=== PATIENT | female | born 1960 | race Caucasian/White ===

== ENCOUNTER 2017-07-10 21:16 | Emergency (ER) | payer SELFPAY ==
[~2017-07-10] VITALS: Ht 162.6 cm; Wt 54.4 kg
--- NOTE | 2017-07-10 21:35 | Emergency Room Report ---
History of Present Illness General Chief Complaint: Sore Throat Source: Patient, EMS Present Illness HPI Is a 57-year-old female who was just discharged from [facility] for cellulitis to lower extremity. She was prescribed Bactrim and Keflex. She was sent to a rehabilitation facility but she left there because she didn't like it there. She is now complaining of sore throat. Onset since she left the hospital. No fever chills but no nausea no vomiting. Nothing made it better. Swollen made it worse. Allergies: Coded Allergies: No Known Allergies (Unverified , 07/10/17) Patient History Past Medical History: see triage record, old chart reviewed Past Surgical History: none Pertinent Family History: none Social History: Denies: smoking Now: No Immunizations: other Reviewed Nursing Documentation: PMH: Agreed, PSxH: Agreed Nursing Documentation-PMH Past Medical History: No Stated History Review of Systems Eye: Denies: eye pain, blurred vision ENT: Reports: throat pain, Denies: ear pain, nose congestion, throat swelling Respiratory: Denies: cough, shortness of breath Cardiovascular: Denies: chest pain, palpitations Gastrointestinal: Denies: abdominal pain, diarrhea, nausea, vomiting Musculoskeletal: Denies: back pain, joint pain Skin: Denies: rash Neurological: Denies: headache, numbness Endocrine: Denies: increased thirst, increased urine Hematologic/Lymphatic: Denies: easy bruising All Other Systems: negative except mentioned in HPI Physical Exam Vital Signs Date Time Temp Pulse Resp B/P (MAP) Pulse Ox O2 Delivery O2 Flow Rate FiO2 07/10/17 21:15 100 16 140/92 98 Room Air vitals normal Sp02 EP Interpretation: reviewed, normal General Appearance: well appearing, no apparent distress, alert Head: normocephalic, atraumatic Eyes: bilateral eye PERRL, bilateral eye EOMI ENT: hearing grossly normal, normal pharynx Neck: full range of motion, supple, no meningismus Respiratory: chest non-tender, lungs clear, normal breath sounds Cardiovascular #1: regular rate, rhythm, no murmur Gastrointestinal: normal bowel sounds, non tender, no mass, no organomegaly, no bruit, non-distended Musculoskeletal: back normal, gait/station normal, normal range of motion, other - Chronic skin changes of Lower extremities. No edema. She has a ulcer to the right lower leg. No infection. Neurologic: alert, oriented x3 Psychiatric: mood/affect normal Skin: warm/dry Medical Decision Making Diagnostic Impression: Primary Impression: Pharyngitis, acute Qualified Codes: J02.8 - Acute pharyngitis due to other specified organisms ER Course Patient with a pharyngitis. Most likely while in nature. No exudates. She started on antibiotics. No trismus. No evidence of peritonsillar abscess, retropharyngeal abscess or Chintan angina. No active infection. We'll discharge home. Last Vital Signs Date Time Temp Pulse Resp B/P (MAP) Pulse Ox O2 Delivery O2 Flow Rate FiO2 07/10/17 21:15 100 16 140/92 98 Room Air Status: unchanged Disposition: HOME, SELF-CARE Condition: Stable Patient Instructions: Sore Throat Additional Instructions: Take your antibiotics. Followup with your doctor as scheduled by [facility]. Return if symptom worsen. ROSY MARROQUIN M.D. Jul 10, 2017 21:35
[2017-07-10 21:41] VITALS: BP 140/92
[2017-07-10 21:42] VITALS: BP 0/0
== END 2017-07-10 21:40 | disposition home or self-care (01) ==
LOC: EDBD 21:16 → EMR 21:25
DX: J02.9 Acute pharyngitis, unspecified (principal)
CPT/HCPCS: 99282

== ENCOUNTER 2020-02-06 07:20 | Emergency (ER) | payer OTHER ==
[~2020-02-06] VITALS: Ht 157.5 cm; Wt 57.2 kg
[2020-02-06] MEDS ORDERED: Morphine Sulfate 4mg/ml Inj (IV USE ONLY) IVP ONE (07:30)
[2020-02-06] MEDS ORDERED: Tetanus/Diptheria/Pertussis IM ONE (07:30)
--- NOTE | 2020-02-06 07:30 | NUR ---
ED Nurse Note: Patient brought in by ambulance from street/homeless due to BLE infection. per pt, it is chronic condition which she has had for 10 years. pt aao x4 and ambulatory but weak and slow. pt tends to be agitated and refuses care for no reason. redirectable but consistently refusing changing to gown, medications, iv insertion, being on classroom monitor. currently, iv HL made on Lt AC 22 G, pt changed to gown, medications given but Tdap shot. pt refused to be on classroom monitor. pt denied chest pain, SOB, cough, fever.
--- NOTE | 2020-02-06 07:36 | Emergency Room Report ---
History of Present Illness General Chief Complaint: Skin Rash/Abscess Source: Patient, Medical Record Present Illness HPI 58-year-old female with chronic venous stasis presents ambulance with complaint of rash to the bilateral lower extremity. She was hospitalized 2 months ago in [place] for similar complaint and was discharged with oral antibiotics. She has not taken any recent antibiotics and states that with continued walking , the pain gets worse. She admits to chills and pain with weightbearing. Otherwise denies fever, cough, hemoptysis, hematemesis, melena, hematochezia, nausea, vomiting, diarrhea or rapidly progressive rash. She denies history of chronic kidney disease or congestive heart failure. Denies IVDU or IM drug use. She states she is allergic to Bactrim and vancomycin. The patient's symptoms were gradual onset, severity was moderate, duration since 1 to 2 months. Quality: Aching Past medical history: Chronic venous stasis Past surgical history: Denies Smoking: Denies Alcohol use: Denies Drug use: Denies Review of systems: CONST: No fevers or chills, No night sweats PULMONARY: No productive cough, No shortness of breath CARDIAC: No chest pain, No palpitations GI: No vomiting, No diarrhea , No melena_or_BRBPR : No dysuria, No hematuria, No discharge NEURO: No new_focal_weakness_or_numbness, No confusion, No vision changes 14 point Review of Systems is otherwise negative except per HPI Physical Exam: GENERAL: Awake_alert_ nontoxic, no acute distress Spo2 98% on RA -normal EYES: Extraocular muscles are intact. Conjunctivae clear. Lids without swelling ENT: External nose and ear normal_in_appearance. Oropharynx clear. Head_ atraumatic, Moist_oral_mucosa NECK: No JVD. No meningismus. No thyromegaly. Supple. Trachea midline RESP: Normal respiratory effort. Symmetric rise. No stridor. Clear_to_ auscultation_No_rales_No_wheezes CARDIAC: Tachycardic. And regular rhytm. Left greater than right pedal edema. ABDOMEN: Soft. Nondistended. Nontender_No_rebound_or_guarding. MSK: Normal muscle tone, without rigidity. Extremities without asymmetric deformity or swelling. SKIN: Venous stasis and lymphedema to the bilateral lower extremity (left is worse than right). Erythematous and warm cellulitic rash to the left lower extremity. Circumferential. No palpable crepitus. Weeping serosanguineous material. Pain with palpation of rash. Erythematous warm and cellulitic rash to the right lower extremity. Not as severe as her left lower extremity. No palpable crepitus. Also wheezing. NEUROLOGIC: Alert, oriented x3. Motor_and_sensation_grossly_intact. No truncal ataxia. Gait_normal Psych: Normal mood and affect, normal judgment and insight - COORDINATION OF CARE Case was discussed with: Patient Any labs and imaging that were ordered were interpreted as part of the medical decision making: Medical Decision Making/Plan: Differential diagnosis includes sepsis / severe sepsis , cellulitis , osteo, UTI, pneumonia , viral syndrome, renal failure, congestive heart failure, arthritis, venous stasis , abscess, WITHOUT evidence for compartment syndrome, septic arthritis, arterial occlusion, deep venous thrombosis, among others. Vitals show tachycardia. Exam of BLE is concerning for acute on chronic cellulitis infection of venous stasis. Wounds are weeping. Sepsis bundle initiated on arrival. Blood cultures, lactate drawn. Lactate was elevated along with ESR and CRP, patient was refused 30 cc/kg IV fluids by bolus. Empiric antibiotics were started. COVID negative. No evidence of renal failure or CHF. Chest x-ray is unremarkable. Patient will be admitted to the hospital for further care and evaluation. Patient will be transferred to [facility] Will be transported by S. Accepting physician Dr Montemayor - CRITICAL CARE STATEMENT - Critical care performed 45 minutes Time is exclusive of separately billable procedures. Time includes: direct patient care, patient reassessment, coordination of patient care, review of patient's medical records, medical consultation, family consultation regarding treatment decisions and documentation of patient care. Organ systems at risk: Cardiac / Circulatory / DERM Allergies: Coded Allergies: SULFAMETHOXAZOLE (Verified Allergy, Intermediate, 02/06/20) TRIMETHOPRIM (Verified Allergy, Intermediate, 02/06/20) LEVETIRACETAM (Unverified Allergy, Unknown, 02/06/20) VANCOMYCIN (Unverified Allergy, Unknown, 02/06/20) COVID-19 Screening Contact w/high risk pt: No Experienced COVID-19 symptoms?: No COVID-19 Testing performed BEDSPREAD SEAMER: No Patient History Now: No Nursing Documentation-[facility] Past Medical History: No History, Except For Physical Exam Vital Signs Date Time Temp Pulse Resp B/P (MAP) Pulse Ox O2 Delivery O2 Flow Rate FiO2 02/06/20 07:21 98.1 105 16 103/63 (76) 98 Room Air Sp02 EP Interpretation: reviewed, normal Medical Decision Making Diagnostic Impression: Primary Impression: Cellulitis Additional Impressions: Venous stasis Hyponatremia Lymphedema EKG Diagnostic Results PA Scribe Konstantin 12-lead EKG (interpreted by ) Time: Indication: Rhythm analysis Tracing visualized and Interpreted by me. Rhythm: Sinus tachycardia Rate: 100 bpm QTc: 417 Morphology: No_significant_ST_elevations_or_depressions, No STEMI Impression: Sinus tachycardia without significant abnormalities. Rhythm Strip Diag. Results Rhythm Strip Time: 09:08 EP Interpretation: yes Rate: 80 Rhythm: NSR, no PVC's, no ectopy Chest X-Ray Diagnostic Results Chest X-Ray Diagnostic Results : [facility] Chest X-Ray: Views: [ 1 ] view(s) Indication: Sepsis hyperinflated lungs. Findings: Normal heart size. Mediastinum normal. No infiltrate. Impression: No pneumonia. No pleural effusion. The X-ray(s) were independently viewed and interpreted contemporaneously Electronically signed by Carole espino DO Right foot X-ray: Views: 3 view(s) No fracture. Normal alignment. Joint spaces normal. Indication: cellulitis Impression: Soft tissue swelling/cellulitis. no subcutaneous gas The X-ray(s) were independently viewed and interpreted contemporaneously - Electronically signed by Carole espino DO Left Foot X-ray: Views: 3 view(s) No fracture. Normal alignment. Joint spaces normal. Indication: cellulitis Impression: Soft tissue swelling/cellulitis. no subcutaneous gas The X-ray(s) were independently viewed and interpreted contemporaneously - Electronically signed by Carole espino DO Right Tibia /Fibula X-ray: Views: 2 view(s) No fracture. Normal alignment. Soft tissues normal. Joint spaces normal. Indication: cellulitis Impression: Soft tissue swelling/cellulitis. no subcutaneous gas The X-ray(s) were independently viewed and interpreted contemporaneously - Electronically signed by Carole espino DO Left Tibia /Fibula X-ray: Views: 2 view(s) No fracture. Normal alignment. Joint spaces normal. Indication: cellulitis Impression: Soft tissue swelling/cellulitis. no subcutaneous gas The X-ray(s) were independently viewed and interpreted contemporaneously - Electronically signed by Carole espino DO Reevaluation Time: 09:08 Last Vital Signs Date Time Temp Pulse Resp B/P (MAP) Pulse Ox O2 Delivery O2 Flow Rate FiO2 02/06/20 07:21 98.1 105 16 103/63 (76) 98 Room Air Status: improved Disposition: ADMITTED INPATIENT - [facility] Admit Decision Time: 07:36 Condition: Stable Scripts No Active Prescriptions or Reported Meds Carole Van D.O. Feb 06, 2020 07:36
[2020-02-06 08:29] LABS: ANION GAP 8 mmol/L (5-15); BLOOD UREA NITROGEN 12 mg/dL (7-18); CALCIUM 9.5 MG/DL (8.5-10.1); CARBON DIOXIDE 28 MMOL/L (21-32); CHLORIDE 99 MMOL/L (98-107); CREATININE 0.8 MG/DL (0.55-1.30); POTASSIUM 3.6 MMOL/L (3.5-5.1); SODIUM 135 MMOL/L (136-145)
[2020-02-06 08:30] LABS: BASOPHILS % (AUTO) 0.8 % (0.0-2.0); EOSINOPHILS % (AUTO) 0.5 % (0.0-3.0); HEMATOCRIT 37.6 % (37.0-47.0); HEMOGLOBIN 11.8 G/DL (12.0-16.0); INR 1.1 (0.9-1.1); LYMPHOCYTES % (AUTO) 10.8 % (20.0-45.0); MEAN CORPUSCULAR VOLUME 87 FL (80-99); MONOCYTES % (AUTO) 6.6 % (1.0-10.0); NEUTROPHILS % (AUTO) 81.3 % (45.0-75.0); PLATELET COUNT 294 K/UL (150-450); RED BLOOD COUNT 4.34 M/UL (4.20-5.40); WHITE BLOOD COUNT 8.1 K/UL (4.8-10.8)
[2020-02-06 08:42] LABS: ALANINE AMINOTRANSFERASE 57 U/L (12-78); ALBUMIN 3.3 G/DL (3.4-5.0); ALBUMIN/GLOBULIN RATIO 0.4 (1.0-2.7); ALKALINE PHOSPHATASE 144 U/L (46-116); ASPARTATE AMINO TRANSFERASE 54 U/L (15-37); BILIRUBIN,TOTAL 0.3 MG/DL (0.2-1.0); CKMB 2.1 NG/ML (0.0-3.6); CREATINE KINASE 72 U/L (26-308); LACTATE DEHYDROGENASE 227 U/L (81-234)
--- NOTE | 2020-02-06 09:00 | NUR ---
ED Nurse Note: pt resting in bed without s/s of distress.
--- NOTE | 2020-02-06 10:37 | NUR ---
ED Nurse Note: report given to JOSSELINE Syed. Report was given with pt's behavior including refusing care in the beginning and requires to be convinced and take enough time. The receiving nurse was questioning why we did not let pt to leave AMA. The nurse was told pt refuses care in the beginning but redirectable and eventually we were able to provide care. the nurse stated "Are you dumping pt to us?" the nurse was told that it is insurance purpose and we cannot let pt leave AMA when pt agreed with being transferred and signed on transfer paper with fully understanding.
--- NOTE | 2020-02-06 10:59 | NUR ---
ED Nurse Note: transporation arrived. report given to
[2020-02-06 11:12] VITALS: BP 110/75
--- NOTE | 2020-02-06 11:12 | NUR ---
ED Nurse Note: pt left the facility with 2 supervisor varnish in stable condition.
--- NOTE | 2020-02-06 12:38 | Diagnostic Imaging Report ---
Indication: Right leg pain Technique: 2 views of the right tibia and fibula Comparison: none Findings: No acute fractures. No dislocations. The joint spaces are preserved Impression: Negative
--- NOTE | 2020-02-06 14:07 | Diagnostic Imaging Report ---
Indication: Cough Technique: One view of the chest Comparison: none Findings: Fibronodular scarring is seen in the left lung apex. Left lateral basilar nipple shadow noted. The heart size is normal. Impression: No acute process
--- NOTE | 2020-02-06 15:25 | Diagnostic Imaging Report ---
Indication: Leg pain Technique: 2 views of the left tibia and fibula Comparison: none Findings: No acute fractures. No dislocations. Normal bony alignment. Impression: No acute process
--- NOTE | 2020-02-06 15:26 | Diagnostic Imaging Report ---
Indication: Left foot pain Technique: 3 views left foot Comparison: none Findings: No acute fractures. No dislocations. The joint spaces are preserved Impression: Negative
--- NOTE | 2020-02-06 15:28 | Diagnostic Imaging Report ---
Indication: Foot pain Technique: 3 views right foot Comparison: none Findings: No acute fractures. No dislocations. The joint spaces are preserved. No radiopaque foreign body demonstrated. Impression: No acute process
== END 2020-02-06 11:12 | disposition short-term general hospital (02) ==
LOC: EDBD 07:20 → EMR 07:40
DX: L03.116 Cellulitis of left lower limb (principal); L03.115 Cellulitis of right lower limb; Z88.2 Allergy status to sulfonamides; Z88.8 Allergy status to other drugs, medicaments and biological substances; I87.8 Other specified disorders of veins; E87.1 Hypo-osmolality and hyponatremia; I89.0 Lymphedema, not elsewhere classified; R00.0 Tachycardia, unspecified
CPT/HCPCS: 36415; 71045; 73590; 73630; 80053; 82550; 82553; 83605; 83615; 83880; 84484; 85025; 85610; 85651; 85730; 86140; 87040; 87070; 87181; 87205; 90471; 90715; 93005; 96361; 96374; 96375; J2270; J2405; J7030; U0002; Z7502; 99291